=== PATIENT | male | born 1980 | race Caucasian/White ===

== ENCOUNTER 2022-09-02 05:59 | Emergency (ER) | payer BC ==
[~2022-09-02] VITALS: Ht 167.6 cm; Wt 72.6 kg
--- NOTE | 2022-09-02 06:30 | NUR ---
BIBSELF C/O LEFT SIDE ABD PAIN STARTED LAST NIGHT RAD TO BACK. PT IS A/O X 4, RR EVEN AND UNLABORED NO SOB NOTED. VSS. NAD. AWAITNG ER MD DIEGO.
--- NOTE | 2022-09-02 06:32 | NUR ---
PT UNABLE TO PROVIDE URINE AT THIS TIME
--- NOTE | 2022-09-02 06:33 | NUR ---
SEEN BY DR SCOTT AT BEDSIDE
--- NOTE | 2022-09-02 06:36 | NUR ---
EKG DONE AT BEDSIDE
--- NOTE | 2022-09-02 06:50 | NUR ---
IV ALEXANDER G20 ON LEFT AC. BLOOD DRAWN AND SENT TO LAB
[2022-09-02] MEDS ORDERED: IV NS 0.9% 1,000 ML IV ONE (07:00)
[2022-09-02] MEDS ORDERED: ONDANSETRON HCL/PF 4 MG/2 ML VIAL IV ONE (07:00)
[2022-09-02] MEDS ORDERED: KETOROLAC TROMETHAMINE INJ 30 MG/ML VIAL IV ONE (07:00)
[2022-09-02 07:06] LABS: BASOPHILS % (AUTO) 0.2 % (0.0-2.0); EOSINOPHILS % (AUTO) 0.1 % (0.0-6.0); HEMATOCRIT 42 % (39-51); HEMOGLOBIN 14.2 g/dL (13.5-17.5); LYMPHOCYTES # (AUTO) 0.8 K/uL (0.8-4.8); LYMPHOCYTES % (AUTO) 5.5 % (20.0-44.0); MEAN CORPUSCULAR HGB CONC 34 g/dl (31.0-36.0); MEAN CORPUSCULAR VOLUME 88 fL (80-96); MONOCYTES # (AUTO) 0.5 K/uL (0.1-1.30); MONOCYTES % (AUTO) 3.9 % (2.0-12.0); NEUTROPHILS # (AUTO) 12.4 K/uL (1.8-8.9); NEUTROPHILS % (AUTO) 90.3 % (43.0-81.0); PLATELET COUNT (AUTO) 192 K/uL (150-450); RED BLOOD CELL COUNT(AUTO) 4.84 MIL/uL (4.5-6.0); WHITE BLOOD COUNT (AUTO) 13.8 K/uL (4.3-11.0)
[2022-09-02 07:21] LABS: ALBUMIN 4.4 g/dL (3.4-5.0); BILIRUBIN,DIRECT 0.3 mg/dL (0.0-0.2); BILIRUBIN,TOTAL 1.3 mg/dL (0.2-1.0); CALCIUM, SERUM 8.9 mg/dL (8.5-10.1); CREATININE 1.4 mg/dL (0.6-1.3); POTASSIUM 3.5 mmol/L (3.5-5.1)
--- NOTE | 2022-09-02 07:22 | NUR ---
REPORT GIVEN TO MARY CHARLES
[2022-09-02] MEDS ORDERED: ONDANSETRON HCL/PF 4 MG/2 ML VIAL ONE (07:24)
[2022-09-02] MEDS ORDERED: KETOROLAC TROMETHAMINE 15 MG/ML VIAL ONE (07:24)
--- NOTE | 2022-09-02 08:09 | NUR ---
URINE COLLECTED AND SENT
--- NOTE | 2022-09-02 08:14 | NUR ---
URINE COLLECTED AND SENT TO LAB
[2022-09-02 08:36] LABS: BILIRUBIN,URINE NEGATIVE (NEGATIVE); COLOR,URINE YELLOW (YELLOW); LEUKOCYTE ESTERASE ,URINE NEGATIVE (NEGATIVE); NITRITE, URINE NEGATIVE (NEGATIVE); PH,URINE 5.5 (5.0-8.0); PROTEIN,URINE TRACE mg/dl (NEGATIVE); UGLUCOSE NEGATIVE (NEGATIVE); UROBILINOGEN,URINE 0.2 EU/dL (0.2)
--- NOTE | 2022-09-02 08:45 | NUR ---
PT TO CT SCAN VIA [facility]
--- NOTE | 2022-09-02 09:04 | NUR ---
PT RETURNED FORM CT VIA [facility]
[2022-09-02 09:32] LABS: RBC,URINE 81-100 /HPF (0-2)
[2022-09-02 09:33] LABS: BACTERIA,URINE Rare /HPF (None Seen); SQUAMOUS EPITHELIAL CELL,UR Rare /HPF (None Seen); WBC,URINE 0-2 /HPF (0-3)
[2022-09-02] MEDS ORDERED: HYDR-4209 PO (10:04)
[2022-09-02] MEDS ORDERED: TAMS-12 PO (10:04)
[2022-09-02] MEDS ORDERED: ONDA4TAB5 PO (10:04)
[2022-09-02] MEDS ORDERED: IBUP-1955 PO (10:04)
--- NOTE | 2022-09-02 10:15 | NUR ---
IV removed. Catheter intact and site benign. Pressure and 4x4 applied to site. No bleeding noted.Patient discharged to home in stable condition. Written and verbal after care instructions given. Patient verbalizes understanding of instruction.
[2022-09-02 10:17] VITALS: BP 138/75
[2022-09-02] MEDS ORDERED: ONDA4TAB11 PO (14:33)
[2022-09-02] MEDS ORDERED: HYDR-3980 PO (14:33)
== END 2022-09-02 10:17 | disposition home or self-care (01) ==
LOC: ER 06:04
DX: N20.0 Calculus of kidney (principal); N23 Unspecified renal colic; E78.00 Pure hypercholesterolemia, unspecified
CPT/HCPCS: 99285; 74176; 96374; 96361 ×2; 96375; 93005; 85025; 80048; 83690; 80076; 81001; 36415; 84484; 82962; J2405; J7030; J1885